=== PATIENT | male | born 1990 | race Caucasian/White ===

== ENCOUNTER 2018-04-18 11:05 | Emergency (ER) | payer SELFPAY ==
[2018-04-18 11:11] VITALS: BP 139/90
[2018-04-18] MEDS ORDERED: DIPH/PERTUSS(ACELL)/TETANUS VAC/PF 0.5 ML SYR (>=10YO) IM ONE (11:46)
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
== END 2018-04-18 12:01 | disposition home or self-care (01) ==
LOC: ER 11:05
DX: S09.90XA Unspecified injury of head, initial encounter (principal); W21.03XA Struck by baseball, initial encounter
CPT/HCPCS: 90471; 90715; 99283

== ENCOUNTER 2019-11-18 11:50 | Emergency (ER) | payer OTHER ==
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
[2019-11-18 12:08] VITALS: BP 134/85
== END 2019-11-18 12:14 | disposition home or self-care (01) ==
LOC: ER 11:50
DX: Z48.02 Encounter for removal of sutures (principal); F17.210 Nicotine dependence, cigarettes, uncomplicated

== ENCOUNTER 2020-06-01 10:51 | Day surgery (SDC) | payer OTHER ==
[~2020-06-01 10:51] MED LIST: LEVOFLOXACIN 500 MG/D5W RTU 500 MG/100 ML RTUPB IV PRN
[2020-06-01] MEDS ORDERED: LIDOCAINE 2%/EPINEPHRINE INJ 1.7 ML CARTRIDGE ONE ×2 (11:01→11:38)
[2020-06-01] MEDS ORDERED: COCAINE HCL 4% TOPICAL SOLN 4 ML ONE (11:01)
[2020-06-01] MEDS ORDERED: OXYMETAZOLINE HCL 0.05% NASAL SPRAY 15 ML BOTTLE ONE (11:01)
[2020-06-01] MEDS ORDERED: BUPIVACAINE HCL 0.5%/EPI 1:200000 INJ 1.8 ML CARTRIDGE ONE (11:01)
[2020-06-01] MEDS ORDERED: ONDANSETRON HCL INJ/PF 4 MG/2 ML SDV ONE (11:31)
[2020-06-01] MEDS ORDERED: CARBOXYMETHYLCELLULOSE SOD 0.5% 0.4 ML DROPERETTE ONE (11:31)
[2020-06-01] MEDS ORDERED: MIDAZOLAM 2 MG/2 ML INJ ONE (11:31)
[2020-06-01] MEDS ORDERED: DEXAMETHASONE SOD PHOS INJ 10 MG/1 ML VIAL ONE (11:32)
[2020-06-01] MEDS ORDERED: FENTANYL CITRATE INJ/PF 100 MCG/2 ML AMPUL ONE (11:32)
[2020-06-01] MEDS ORDERED: PROPOFOL INJ 200 MG/20 ML VIAL IV ONE (11:33)
[2020-06-01] MEDS ORDERED: SUCCINYLCHOLINE CHLORIDE INJ 200 MG/10 ML VIAL ONE (11:33)
[2020-06-01] MEDS: BACITRACIN ZINC OINTMENT 15 GM ONE ×2 (14:00)
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
== END 2020-06-01 15:18 | disposition home or self-care (01) ==
LOC: SC 10:51
PROVIDERS: ATTEND Otolaryngology
DX: J34.2 Deviated nasal septum (principal); M95.0 Acquired deformity of nose; J34.3 Hypertrophy of nasal turbinates; Z88.0 Allergy status to penicillin; Z03.818 Encounter for observation for suspected exposure to other biological agents ruled out
CPT/HCPCS: 87635; 30420; 30802; J2250; J1956; J3490 ×5; C9046; J3010; J0330; J2405; J2704; J1100; C9803